=== PATIENT | male | born 1995 | race Caucasian/White ===

== ENCOUNTER 2018-01-20 03:27 | Emergency (ER) | payer MEDICAID ==
[~2018-01-20] VITALS: Ht 182.9 cm; Wt 99.0 kg
[~2018-01-20 03:27] MED LIST: AZIT250T PO; CARB100T7 PO; CYCL-1 PO; DIAZ-351 PO; HYDR-4383 PO; ORPH100T2 PO
[2018-01-20 03:35] VITALS: BP 119/81
[2018-01-20] MEDS ORDERED: ketorolac trometh inj. 60 MG/2 ML VIAL IM ONE (03:45)
== END 2018-01-20 04:08 | disposition home or self-care (01) ==
LOC: ER 03:28
DX: R68.84 Jaw pain (principal); G89.29 Other chronic pain; F12.90 Cannabis use, unspecified, uncomplicated; Z79.899 Other long term (current) drug therapy; Y04.0XXA Assault by unarmed brawl or fight, initial encounter; Y93.01 Activity, walking, marching and hiking; Y92.89 Other specified places as the place of occurrence of the external cause; Y99.9 Unspecified external cause status
CPT/HCPCS: 70110; 96372; 99284; J1885

== ENCOUNTER 2018-02-16 19:32 | Emergency (ER) | payer MEDICAID ==
[~2018-02-16] VITALS: Ht 182.9 cm; Wt 96.2 kg
[2018-02-16] MEDS ORDERED: HYDR-4353 PO (22:10)
[2018-02-16] MEDS ORDERED: CYCL-1 PO (22:10)
[2018-02-16] MEDS ORDERED: ketorolac trometh inj. 60 MG/2 ML VIAL IM ONE (22:10)
[2018-02-16] MEDS ORDERED: ondansetron 4mg rapidly disintigrating tab PO ONE (22:10)
[2018-02-16] MEDS ORDERED: IBUP-1984 PO (22:10)
[2018-02-16] MEDS ORDERED: HYDROcodone/acetaminophen 10/325mg tab PO ONE (22:10)
[2018-02-16] MEDS ORDERED: cyclobenzaprine 10mg tablet PO ONE (22:10)
[2018-02-16 22:27] VITALS: BP 137/73
== END 2018-02-16 22:28 | disposition home or self-care (01) ==
LOC: ER 19:33
DX: M54.5 Low back pain (principal); G89.29 Other chronic pain; F12.90 Cannabis use, unspecified, uncomplicated; Z79.2 Long term (current) use of antibiotics; Z79.899 Other long term (current) drug therapy
CPT/HCPCS: 96372; 99284; J1885

== ENCOUNTER 2018-07-08 23:01 | Emergency (ER) | payer MEDICAID ==
[~2018-07-08] VITALS: Ht 182.9 cm; Wt 95.0 kg
[2018-07-08] MEDS ORDERED: HYDR-4353 PO (23:52)
== END 2018-07-09 00:44 | disposition home or self-care (01) ==
LOC: ER 23:01
DX: S92.424A Nondisplaced fracture of distal phalanx of right great toe, initial encounter for closed fracture (principal); G89.29 Other chronic pain; F12.90 Cannabis use, unspecified, uncomplicated; Z79.899 Other long term (current) drug therapy; W22.8XXA Striking against or struck by other objects, initial encounter; Y93.89 Activity, other specified; Y92.89 Other specified places as the place of occurrence of the external cause; Y99.8 Other external cause status
CPT/HCPCS: 73630; 99283

== ENCOUNTER 2019-07-29 09:09 | Emergency (ER) | payer SELFPAY ==
[~2019-07-29] VITALS: Ht 182.9 cm; Wt 88.6 kg
[2019-07-29 10:04] LABS: BASOPHILS # (AUTO) 0.1 X10'3 (0-0.2); BASOPHILS % (AUTO) 0.6 % (0-1); EOSINOPHILS # (AUTO) 0.2 X10'3 (0-0.9); EOSINOPHILS % (AUTO) 2.8 % (0-6); HEMATOCRIT 44.3 % (42.0-52.0); HEMOGLOBIN 15.2 g/dl (14.0-17.9); LYMPHOCYTES # (AUTO) 1.8 X10'3 (1.1-4.8); LYMPHOCYTES % (AUTO) 21.6 % (21-51); MEAN CORPUSCULAR HEMOGLOBIN 31.4 PG (27.0-31.0); MEAN CORPUSCULAR HGB CONC 34.3 g/dL (33.0-36.5); MEAN CORPUSCULAR VOLUME 91.7 FL (78-98); MEAN PLATELET VOLUME 7.8 FL (7.4-10.4); MONOCYTES # (AUTO) 0.5 X10'3 (0-0.9); MONOCYTES % (AUTO) 5.9 % (2-12); NEUTROPHILS # (AUTO) 5.8 X10'3 (1.8-7.7); NEUTROPHILS % (AUTO) 69.1 % (42-75); PLATELET COUNT 236 X10'3 (140-440); RED BLOOD COUNT 4.84 X10'6 (4.70-6.10); RED CELL DISTRIBUTION WIDTH 12.6 % (11.5-14.5); WHITE BLOOD COUNT 8.4 X10'3 (4.5-11.0)
[2019-07-29 10:17] LABS: ALANINE AMINOTRANSFERASE 39 U/L (12-78); ALBUMIN 4.1 G/DL (3.4-5.0); ALBUMIN/GLOBULIN RATIO 1.4 (1.1-1.5); ALKALINE PHOSPHATASE 61 IU/L (46-116); ANION GAP 5 (8-16); ASPARTATE AMINO TRANSFERASE 26 U/L (10-37); BILIRUBIN,TOTAL 0.2 MG/DL (0.1-1.0); BLOOD UREA NITROGEN 18 MG/DL (7-18); BUN/CREATININE RATIO 19.1 (5.4-32.0); CALCIUM 9.1 MG/DL (8.5-10.1); CHLORIDE 108 MMOL/L (99-107); CREATININE 0.94 MG/DL (0.60-1.10); GLUCOSE 104 MG/DL (70-104); LIPASE 74 U/L (73-393); POTASSIUM 4.7 MMOL/L (3.5-5.1); SODIUM 143 MMOL/L (135-145); TOTAL CARBON DIOXIDE 30.2 MMOL/L (24-32); TOTAL PROTEIN 7.1 G/DL (6.4-8.2); eGFR > 90 ML/MIN
[2019-07-29] MEDS ORDERED: HYDROcodone/acetaminophen 5mg/325mg tablet PO ONE (10:40)
[2019-07-29] MEDS ORDERED: ondansetron 4mg rapidly disintigrating tab PO ONE (10:40)
[2019-07-29 10:58] LABS: CLARITY,URINE CLEAR (Clear); COLOR,URINE YELLOW (Yellow); GLUCOSE, URINE NEGATIVE (Neg); KETONES,URINE NEGATIVE (Neg); LEUKOCYTE ESTERASE ,URINE NEGATIVE (Neg); NITRITES, URINE NEGATIVE (Neg); OCCULT BLOOD,URINE NEGATIVE (Neg); PH,URINE 7.5 (4.8-8.0); PROTEIN,URINE NEGATIVE (Neg); UROBILINOGEN,URINE 0.2 E.U/dL (0.2-1.0)
[2019-07-29 11:00] LABS: UA COLLECTION TYPE CLN CATCH MIDSTREAM
[2019-07-29] MEDS ORDERED: CYCL-1 PO (11:37)
[2019-07-29 11:45] VITALS: BP 126/72
== END 2019-07-29 11:47 | disposition home or self-care (01) ==
LOC: ER 09:10
DX: S29.012A Strain of muscle and tendon of back wall of thorax, initial encounter (principal); R10.31 Right lower quadrant pain; R10.11 Right upper quadrant pain; G89.29 Other chronic pain; F12.90 Cannabis use, unspecified, uncomplicated; Z72.89 Other problems related to lifestyle; Z79.2 Long term (current) use of antibiotics; Z79.899 Other long term (current) drug therapy; X58.XXXA Exposure to other specified factors, initial encounter; Y93.89 Activity, other specified; Y92.89 Other specified places as the place of occurrence of the external cause; Y99.8 Other external cause status
CPT/HCPCS: 36415; 74176; 80053; 81003; 83690; 85025; 99284

== ENCOUNTER 2023-07-06 12:12 | Emergency (ER) | payer BC, SELFPAY ==
[~2023-07-06] VITALS: Ht 182.9 cm; Wt 92.4 kg
[~2023-07-06 12:12] MED LIST changes: -ORPH100T2 PO; +ORPH100T4 PO
[2023-07-06 12:21] VITALS: BP 119/76; PULSE 77; RESP 18; TEMP 97.8; O2SAT 98
[2023-07-07] MEDS ORDERED: METR-159 PO (13:47)
== END 2023-07-06 13:17 | disposition left against medical advice (07) ==
LOC: ER 12:14
DX: R10.9 Unspecified abdominal pain (principal); Z53.21 Procedure and treatment not carried out due to patient leaving prior to being seen by health care provider
CPT/HCPCS: 99281

== ENCOUNTER 2023-07-07 10:43 | Emergency (ER) | payer SELFPAY ==
[~2023-07-07] VITALS: Ht 182.9 cm; Wt 92.7 kg
[2023-07-07 10:57] VITALS: TEMP 97.3
[2023-07-07 11:39] LABS: BASOPHILS % (AUTO) 0.3 % (0-1); EOSINOPHILS # (AUTO) 0.4 X10'3 (0-0.9); EOSINOPHILS % (AUTO) 3.8 % (0-6); HEMATOCRIT 45.7 % (42.0-52.0); HEMOGLOBIN 15.5 g/dl (14.0-17.9); LYMPHOCYTES # (AUTO) 2.2 X10'3 (1.1-4.8); LYMPHOCYTES % (AUTO) 18.5 % (21-51); MEAN CORPUSCULAR HEMOGLOBIN 30.8 PG (27.0-31.0); MEAN CORPUSCULAR HGB CONC 33.9 g/dL (33.0-36.5); MEAN CORPUSCULAR VOLUME 90.8 FL (78-98); MEAN PLATELET VOLUME 7.5 FL (7.4-10.4); MONOCYTES # (AUTO) 0.6 X10'3 (0-0.9); MONOCYTES % (AUTO) 5.2 % (2-12); NEUTROPHILS # (AUTO) 8.5 X10'3 (1.8-7.7); NEUTROPHILS % (AUTO) 72.2 % (42-75); PLATELET COUNT 258 X10'3 (140-440); RED BLOOD COUNT 5.03 X10'6 (4.70-6.10); WHITE BLOOD COUNT 11.8 X10'3 (4.5-11.0)
[2023-07-07 11:54] LABS: ALANINE AMINOTRANSFERASE 33 U/L (12-78); ALBUMIN 3.8 G/DL (3.4-5.0); ALBUMIN/GLOBULIN RATIO 1.1 (1.1-1.5); ALKALINE PHOSPHATASE 59 IU/L (46-116); ANION GAP 9 (8-16); ASPARTATE AMINO TRANSFERASE 21 U/L (10-37); BILIRUBIN,TOTAL 0.5 MG/DL (0.1-1.0); BLOOD UREA NITROGEN 14 MG/DL (7-18); BUN/CREATININE RATIO 15.6 (10.0-20.0); CALCIUM 9.1 MG/DL (8.5-10.1); CHLORIDE 107 MMOL/L (99-107); GLUCOSE 84 MG/DL (70-104); POTASSIUM 4.2 MMOL/L (3.5-5.1); SODIUM 143 MMOL/L (135-145); TOTAL PROTEIN 7.2 G/DL (6.4-8.2); eCRCL 137 ML/MIN; eGFR > 90 ML/MIN
[2023-07-07] MEDS ORDERED: iohexol 300mg/ml 100ml inj. ONE (12:21)
[2023-07-07 12:59] VITALS: BP 103/55; PULSE 77; RESP 16; O2SAT 97
[2023-07-07] MEDS ORDERED: METR-159 PO (13:47)
== END 2023-07-07 13:54 | disposition home or self-care (01) ==
LOC: ER 10:44
DX: K52.9 Noninfective gastroenteritis and colitis, unspecified (principal); G89.29 Other chronic pain; F12.90 Cannabis use, unspecified, uncomplicated; Z72.89 Other problems related to lifestyle; Z79.2 Long term (current) use of antibiotics; Z79.899 Other long term (current) drug therapy
CPT/HCPCS: 36415; 74177; 80053; 85025; 99285; J3490; Q9967

== ENCOUNTER 2024-09-15 21:25 | Emergency (ER) | payer BC, SELFPAY ==
[~2024-09-15] VITALS: Ht 182.9 cm; Wt 69.9 kg
[~2024-09-15 21:25] MED LIST changes: -CARB100T7 PO; +TEG100T PO
[2024-09-15 21:50] VITALS: BP 109/73; PULSE 74; RESP 15; O2SAT 100
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
--- NOTE | 2024-09-15 22:27 | RADIOLOGY REPORT ---
EXAM: CT CT HEAD INDICATION: trauma TECHNIQUE: CT of the head without intravenous contrast. Radiation Dose : 1. Head: CT Dose: CTDI volume is 61.16 mGy. Dose-length product is 1061.92 mGy*cm The dose indicators for CT are the volume Computed Tomography (CT) Dose Index (CTDIvol) and the Dose Length Product (DLP), and are measured in units of mGy and mGy-cm, respectively. These indicators are not patient dose, but values generated from the CT scanner acquisition factors. The report includes radiation exposure data for exposures received during this examination. COMPARISON: None FINDINGS: There is no evidence of acute intracranial hemorrhage, extra-axial collection, mass effect, midline s hift, herniation or hydrocephalus. The ventricles, sulci and cisterns are age appropriate. The kay-white differentiation is intact. The visualized paranasal sinuses and mastoid air cells are clear. The surrounding soft tissues and osseous structures are unremarkable. IMPRESSION: 1. No acute intracranial abnormality. Radiation optimization: All CT scans at this facility use at least one of these dose optimization jitendra hniques: automated exposure control mA and/or kV adjustment per patient size (includes targeted exam s where dose is matched to clinical indication) or iterative reconstruction.
--- NOTE | 2024-09-15 22:30 | RADIOLOGY REPORT ---
EXAM: CT CT CERVICAL SPINE HISTORY: trauma COMPARISON: None CTDIvol 19.59 mGy, DLP 462.44 mGy*cm. TECHNIQUE: Multiple axial CT images of the spine were obtained using bone algorithm. Axial and coron al reformatting was done. Bone and soft tissue windows were reviewed. FINDINGS: Mild loss of normal cervical lordosis. No CT evidence of definite acute fracture, spinal dislocation, or significant appearing acute subluxa tion is seen. The visualized paraspinal soft tissues are grossly unremarkable. Posterior disc osteophyte complex at the C5-C6 level associated with a left paramedian eccentric disc protrusion measuring 5 mm with moderate mass effect on the central canal and spinal cord. IMPRESSION: 1. No definite CT evidence of acute fracture or dislocation of the bony cervical spine. 2. Posterior disc osteophyte complex at the C5-C6 level with left paramedian eccentric disc protrusio n associated with mass effect on the central canal and spinal cord.
[2024-09-15 22:57] VITALS: TEMP 96.8
== END 2024-09-15 23:04 | disposition home or self-care (01) ==
LOC: ER 21:26
DX: S06.0X0A Concussion without loss of consciousness, initial encounter (principal); M54.2 Cervicalgia; F12.90 Cannabis use, unspecified, uncomplicated; V89.2XXA Person injured in unspecified motor-vehicle accident, traffic, initial encounter; Y93.89 Activity, other specified; Y92.89 Other specified places as the place of occurrence of the external cause; Y99.8 Other external cause status
CPT/HCPCS: 70450; 72125; 99284

== ENCOUNTER 2024-10-21 14:20 | Emergency (ER) | payer BC, OTHER ==
[~2024-10-21] VITALS: Ht 182.9 cm; Wt 82.7 kg
[2024-10-21 14:24] VITALS: BP 107/74; PULSE 85; RESP 15; TEMP 98.9; O2SAT 98
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
--- NOTE | 2024-10-21 16:44 | VASCULAR REPORT ---
Indication: Trauma, left cold foot Technique: Real- time ultrasound images of the left lower extremity with grayscale, color, and spect ral wave Doppler. Comparison: None Findings: Biphasic /triphasic waveforms throughout the left lower extremity. Peak systolic velocities are as follows (in cm/s): Left: Common femoral artery: 84 Profunda femoris: 48 Proximal superficial femoral: 72 Mid superficial femoral artery: 94 Distal superficial femoral artery: 76 Popliteal artery: 52 Posterior tibial artery: 31 Anterior tibial artery: 41 Impression: No sonographic evidence for hemodynamically significant stenosis.
== END 2024-10-21 16:30 | disposition home or self-care (01) ==
LOC: ER 14:21
DX: S81.812A Laceration without foreign body, left lower leg, initial encounter (principal); F12.90 Cannabis use, unspecified, uncomplicated; Z79.899 Other long term (current) drug therapy; Z72.89 Other problems related to lifestyle; W26.8XXA Contact with other sharp object(s), not elsewhere classified, initial encounter; Y93.89 Activity, other specified; Y92.89 Other specified places as the place of occurrence of the external cause; Y99.8 Other external cause status
CPT/HCPCS: 93926; 99284